=== PATIENT | male | born 1980 | race Two or more races ===

== ENCOUNTER 2017-12-31 09:14 | Emergency (ER) | payer BC ==
[~2017-12-31] VITALS: Ht 157.5 cm; Wt 2.3 kg
[2017-12-31 09:35] VITALS: BP 113/77
== END 2017-12-31 10:04 | disposition home or self-care (01) ==
LOC: ER 09:14
DX: S80.02XA Contusion of left knee, initial encounter (principal); W50.1XXA Accidental kick by another person, initial encounter; Y93.89 Activity, other specified; Y99.8 Other external cause status; Y92.89 Other specified places as the place of occurrence of the external cause
CPT/HCPCS: 73562